=== PATIENT | male | born 1965 | race African-American/Black ===

== ENCOUNTER 2019-06-15 13:28 | Emergency (ER) | payer MEDICARE, MEDICAID ==
[2019-06-15] MEDS ORDERED: ONDANSETRON HCL/PF 4 MG/2 ML VIAL ONE (14:24)
[2019-06-15] MEDS ORDERED: MORPHINE SULFATE INJ 4 MG/ML DISP.SYRIN ONE (14:24)
[2019-06-15] MEDS ORDERED: ONDANSETRON HCL/PF 4 MG/2 ML VIAL IVP ONE (14:30)
[2019-06-15] MEDS ORDERED: IV NS 0.9% 1,000 ML BAG IV ONE (14:30)
[2019-06-15] MEDS ORDERED: MORPHINE SULFATE INJ 2 MG/ML DISP.SYRIN IV ONE (14:30)
[2019-06-15] MEDS ORDERED: HYDR-4077 PO (15:12)
[2019-06-15] MEDS ORDERED: INSU100V11 SQ (15:12)
[2019-06-15] MEDS ORDERED: WARF1TAB47 PO (15:12)
[2019-06-15] MEDS ORDERED: CLON0.2T PO (15:12)
[2019-06-15] MEDS ORDERED: METO25TA20 PO (15:12)
[2019-06-15] MEDS ORDERED: INSU100I26 SQ (15:12)
[2019-06-15] MEDS ORDERED: NIFE20CA PO (15:12)
[2019-06-15] MEDS ORDERED: LISI-603 PO (15:12)
== END 2019-06-15 16:07 | disposition home or self-care (01) ==
DX: M25.462 Effusion, left knee (principal); E11.22 Type 2 diabetes mellitus with diabetic chronic kidney disease; I12.0 Hypertensive chronic kidney disease with stage 5 chronic kidney disease or end stage renal disease; N18.6 End stage renal disease; N17.9 Acute kidney failure, unspecified; Z86.718 Personal history of other venous thrombosis and embolism; Z86.711 Personal history of pulmonary embolism
CPT/HCPCS: 36415; 73562; 85025; 85610; 93970; 96374; 96375; 99284; J2270; J2405; J7030